=== PATIENT | female | born 1965 | race Caucasian/White ===

== ENCOUNTER → 2017-09-13 16:06 | Outpatient (CLI) | payer OTHER, SELFPAY ==
[2017-09-13 18:39] LABS: BUN Creatinine Ratio 22.2 (6-22); Blood Urea Nitrogen 20 mg/dL (7-17); Calcium 9.9 mg/dL (8.4-10.2); Carbon Dioxide 33 mmol/L (22-32); Chloride 95 mmol/L (98-107); Estimated Glomerular Filt Rate > 60.0 mL/min (>60); Glucose 96 mg/dL (70-100); HEMOLYSIS < 15 (0-50); Potassium 4.7 mmol/L (3.4-5.1); Sodium 141 mmol/L (137-145)
[2017-09-13 19:09] LABS: Thyroid Stimulating Hormone 0.03 uIU/mL (0.47-4.68)
== END ==
PROVIDERS: PCP Internal Medicine; Visit Provider Internal Medicine
DX: L70.9 Acne, unspecified (principal); E03.9 Hypothyroidism, unspecified
CPT/HCPCS: 36415; 80048; 84443

== ENCOUNTER → 2018-04-28 11:02 | Outpatient (CLI) | payer OTHER, SELFPAY ==
[2018-04-28 12:23] LABS: Free T3, Triiodothyronine Free 4.25 pg/mL (2.77-5.27)
[2018-04-28 12:37] LABS: Thyroid Stimulating Hormone 0.54 uIU/mL (0.47-4.68)
== END ==
PROVIDERS: PCP Internal Medicine; Visit Provider Internal Medicine
DX: E03.9 Hypothyroidism, unspecified (principal)
CPT/HCPCS: 36415; 84439; 84443; 84481

== ENCOUNTER → 2018-07-03 14:16 | Outpatient (CLI) | payer OTHER, SELFPAY | PROVIDERS: PCP Family Medicine; Visit Provider Registered Nurse | DX: R19.7 Diarrhea, unspecified (principal) | CPT/HCPCS: 87045; 87899 ==

== ENCOUNTER → 2018-07-03 14:26 | Outpatient (CLI) | payer OTHER, SELFPAY | PROVIDERS: PCP Family Medicine; Visit Provider Registered Nurse ==

== ENCOUNTER 2018-11-29 12:04 | Day surgery (SDC) | payer OTHER, SELFPAY ==
--- NOTE | 2018-11-29 | PATH_ITS ---
[facility] Accession Number: [id number] . 01 Material submitted: . cecum - CECAL POLYP AT 90 CM . 02 Diagnosis: Cecum, Polyp at 90 cm, Biopsy: Tubular adenoma. MRV/11/30/2018 . 02 Electronically signed: . Katrin Magana MD, Pathologist NPI- [id number] . 01 Gross description: . CECAL POLYP AT 90 CM: Received in formalin is 1 fragment(s) of molina, soft tissue measuring 0.4 x 0.3 x 0.3 cm which is entirely submitted and submitted entirely in 1 cassette(s) /DMC /DMC . 02 Pathologist provided ICD-10: D12.0 . 02 CPT . 311757 Performed at: 01 [facility] [address] [id number] MD Luke Suarez MD Phone: [phone] Performed at: 02 [facility] [address] [place], [place] [id number] MD Katrin Magana MD Phone: [phone]
[2018-11-29] MEDS: SODIUM CHLORIDE 0.9% 1,000 ML 200 ML IV (12:30)
[2018-11-29 12:32] VITALS: BP 145/96; PULSE 79; RESP 12; TEMP 36.6; O2SAT 99; BMI 26.0
--- NOTE | 2018-11-29 12:43 | P.HP_ITS ---
History of Present Illness Date Patient Seen: 11/29/18 Time Patient Seen: 12:40 Chief complaint: [id number] Narrative: Patient presents for colorectal screening. They had a prior colonoscopy 5 years ago which was reportedly normal Hergrandmaother had colon cancer at age 65. On further history denies any recent gastrointestinal symptoms. No nausea, vomiting, abdominal pain, loss of appetite, unexplained weight loss, change in bowel habits, melena, hematochezia, or bright red blood per rectum. Patient History Medical History Anemia (Chronic ~1989) Colon polyps (Chronic) Depression (Chronic ~1989) Eczema (Chronic ~2010) Hay fever (Chronic) Hemorrhoid (Chronic ~2007) Hypothyroidism (Chronic ~1999) Migraines (Chronic ~1989) Neck pain (Chronic ~2011) Rosacea (Chronic ~1989) Shoulder pain (Chronic ~2005) Supraventricular tachycardia (Chronic ~2007) Acne (Resolved) Chicken pox (Resolved ~1993) Surgical History Anesthesia (Resolved) Status post arthroscopy Status post breast biopsy Status post tubal ligation Family History (Updated 10/29/13 @ 00:00 by ALENA Mauricio) Father High cholesterol Melanoma Prostate cancer CVA (cerebral vascular accident) Grandfather Liver cancer Grandmother Parkinson's disease Mother Age: 77 Hypertension High cholesterol Osteoporosis Pulmonary embolism Social History (Updated 08/01/17 @ 21:10 by Shelia Roa) household members: spouse pets and animals: Yes education level: other 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 seatbelt use: always helmet use: Yes water heater temp set < 120 deg: No working smoke detector in home: Yes fire extinguisher in home: Yes carbon monox detector in home: Yes Smoking Status: Never smoker alcohol intake: current during the past year weight has: remained stable well-balanced diet: about half the time daily servings fruits/ve-4 caffeine: Yes (2+ caffeine drinks per day) eating out: 4 or more times/week Type(s) of exercise: walking frequency: 1-2 times per week duration: 30-45 minutes/day Family & Social History Family History Father High cholesterol Melanoma Prostate cancer CVA (cerebral vascular accident) Grandfather Liver cancer Grandmother Parkinson's disease Mother Age: 77 Hypertension High cholesterol Osteoporosis Pulmonary embolism Social History: household members spouse Tobacco & Substance use: Smoking Status Never smoker alcohol intake current alcohol intake frequency 0-2 drinks per day Meds Home Medications Medication Instructions Recorded Confirmed Type hydrocortisone acetate [Anusol-HC] 25 mg R BID #1 packet 06/27/16 07/03/18 Rx levothyroxine 88 mcg capsule 88 mcg PO DAILY #90 cap 05/15/18 07/03/18 Rx liothyronine 5 mcg tablet 10 mcg PO QDAY #180 tab 05/15/18 07/03/18 Rx spironolactone 100 mg tablet 50 mg PO DAILY #30 tab 05/15/18 07/03/18 Rx hydrocortisone 2.5 % topical cream 1 applictn TOP BID PRN #20 gram 07/03/18 Rx Allergies Allergy/AdvReac Type Severity Reaction Status Date / Time No Known Drug Allergies Allergy Unknown Unverified 07/03/18 13:56 [NO KNOWN DRUG ALLERGIES] OYSTER Allergy Mild Uncoded 07/03/18 13:56 Review of Systems Review of Systems All systems reviewed & are unremarkable except as noted in HPI and below Exam Vital Signs (past 8 hours): - 11/29/18 12:32 Temperature 97.9 F Pulse Rate 79 Respiratory Rate 12 Blood Pressure 145/96 H Pulse Oximetry 99 Oxygen Delivery Method Room Air Narrative Exam Narrative: General-adult female no acute distress, well nourished HEENT-moist mucous membranes, no scleral icterus Neck-supple with full range of motion, no lymphadenopathy Chest- no labored respirations, clear to auscultation bilaterally Cardiac-regular rate and rhythm Abdomen-soft, nontender, non distended Extremities-no edema, warm well perfused Neurological-alert and oriented x 3. No focal deficits Skin-normal temperature and turgor, no rashes or ulcers Assessment & Plan (1) Screening for colon cancer: Current visit: Yes Status: Acute Assessment & Plan narrative: Patient is requiring colorectal screening. Colonoscopy is recommended. Technical details were discussed. Risks, benefits, alternatives explained. Risks including but not limited to sedation, aspiration, bleeding, pain, missed lesion, incomplete examination, need for further radiographic studies, colonic perforation, need for major abdominal surgery, and all attendant risks major surgery were discussed at length. All questions were answered to their satisfaction, and they voiced understanding.
[2018-11-29] MEDS: MIDAZOLAM 5 MG/5 ML VIAL IV (13:29)
[2018-11-29] MEDS: fentaNYL 250 MCG/5 ML INJ IV (13:32)
[2018-11-29 13:46] VITALS: BP 146/85; PULSE 66; RESP 15; TEMP 36.6; O2SAT 99
--- NOTE | 2018-11-29 13:49 | PM.OP.ENDO ---
Operative Date/Time/Diagnoses Date of procedure: 11/29/18 Time of procedure: 13:49 Pre-op diagnosis: screening colonoscopy. Family history of colon cancer Post-op diagnosis: same Procedure & Clinicians Study performed: colonoscopy Same procedure as scheduled: Yes Indications: A 53-year-old female with strong family history of colon cancer presents for routine screening Surgeon: Nikolai Christine Procedure Notes SCOAP/Timeout: performed Procedure in detail: Digital rectal exam was performed. Scope was carefully inserted into the rectum and advanced through the colon. The ileocecal valve was reached. A less than 1 cm benign-appearing polyp within the cecum at approximately 90 cm was identified and biopsied. The site was found to be hemostatic. The scope was carefully withdrawn. The remainder of the colon was normal in its appearance. The scope was retroflexed within the rectum demonstrated grade 1 internal hemorrhoid. Scope withdrawal time: 10 Sedation minutes: 30 Findings: polyp Specimen(s): other (polyp cecum at 90 cm) Complications: none Impression: normal Recommendations: Colonscopy in 5 years Disposition: same day surgery
[2018-11-29 13:50] VITALS: BP 135/81; PULSE 63; RESP 15; O2SAT 99
--- NOTE | 2018-11-29 13:52 | P.OP.ENDO_ITS ---
Operative Date/Time/Diagnoses Date of procedure: 11/29/18 Time of procedure: 13:49 Pre-op diagnosis: screening colonoscopy. Family history of colon cancer Post-op diagnosis: same Procedure & Clinicians Study performed: colonoscopy Same procedure as scheduled: Yes Indications: A 53-year-old female with strong family history of colon cancer pr esents for routine screening Surgeon: Nikolai Christine Procedure Notes SCOAP/Timeout: performed Procedure in detail: Digital rectal exam was performed. Scope was carefully inserted into the rectum and advanced through the colon. The ileocecal valve was reached. A less than 1 cm benign-appearing polyp within the cecum at approximately 90 cm was identified and biopsied. The site was found to be hemostatic. The scope was carefully withdrawn. The remainder of the colon was normal in its appearance. The scope was retroflexed within the rectum demonstrated grade 1 internal hemorrhoid. Scope withdrawal time: 10 Sedation minutes: 30 Findings: polyp Specimen(s): other (polyp cecum at 90 cm) Complications: none Impression: normal Recommendations: Colonscopy in 5 years Disposition: same day surgery
[2018-11-29 14:04] VITALS: BP 132/78; PULSE 65; RESP 14; TEMP 36.9; O2SAT 100
[2018-11-29 14:19] VITALS: BP 129/81; PULSE 70; RESP 12; TEMP 36.6; O2SAT 100
== END 2018-11-29 12:43 | disposition home or self-care (01) ==
PROVIDERS: PCP Family Medicine; Visit Provider Surgery
PROC: 0DJD8ZZ Inspection of Lower Intestinal Tract, Via Natural or Artificial Opening Endoscopic (ICD-10-PCS; CPT 45378; principal; 2018-11-29 13:00)
DX: Z12.11 Encounter for screening for malignant neoplasm of colon (principal); D12.0 Benign neoplasm of cecum; K64.0 First degree hemorrhoids; F32.9 Major depressive disorder, single episode, unspecified; E03.9 Hypothyroidism, unspecified; Z80.0 Family history of malignant neoplasm of digestive organs
CPT/HCPCS: 45380; 99152; 99153; J2250; J3010

== ENCOUNTER → 2019-02-12 17:22 | Outpatient (CLI) | payer OTHER, SELFPAY ==
--- NOTE | 2019-02-12 | DI.MG.S_ITS ---
BILATERAL DIGITAL SCREENING MAMMOGRAM 3D/2D WITH CAD: 02/12/2019 CLINICAL: Routine screening. Comparison is made to exams dated: 03/29/2017 mammogram, 07/14/2015 mammogram, and 03/14/2014 mammogram - [facility]. The tissue of both breasts is heterogeneously dense. This may lower the sensitivity of mammography. Current study was also evaluated with a Computer Aided Detection (CAD) system. There is a biopsy clip in the left breast. No significant masses, calcifications, or other findings are seen in either breast. There has been no significant interval change. IMPRESSION: NEGATIVE There is no mammographic evidence of malignancy. A 1 year screening mammogram is recommended. This exam was interpreted at Station ID: [id number]. NOTE: For mammograms, a report in lay terms will be sent to the patient. Approximately 15% of breast malignancies will not be visualized mammographically. In the management of a palpable breast mass, a negative mammogram must not discourage biopsy of a clinically suspicious lesion. Electronically Signed By: Alex carrasco/zayra:02/13/2019 08:32:51 letter sent: Normal Exam ACR BI-RADS Category 1: Negative 3341F
== END ==
PROVIDERS: PCP Family Medicine; Visit Provider Family Medicine
DX: Z12.31 Encounter for screening mammogram for malignant neoplasm of breast (principal)
CPT/HCPCS: 77063; 77067

== ENCOUNTER → 2019-06-08 11:00 | Outpatient (CLI) | payer OTHER, SELFPAY ==
[2019-06-08 13:45] LABS: Thyroid Stimulating Hormone 1.15 uIU/mL (0.47-4.68)
== END ==
PROVIDERS: PCP Family Medicine; Referring Provider Family Medicine; Visit Provider Family Medicine
DX: E03.9 Hypothyroidism, unspecified (principal)
CPT/HCPCS: 36415; 84443

== ENCOUNTER → 2020-02-12 17:41 | Outpatient (CLI) | payer OTHER, SELFPAY ==
[2020-02-12 18:11] LABS: BUN Creatinine Ratio 27.2 (6-22); Blood Urea Nitrogen 22 mg/dL (7-17); Calcium 9.3 mg/dL (8.4-10.2); Carbon Dioxide 33 mmol/L (22-32); Chloride 102 mmol/L (98-107); Estimated Glomerular Filt Rate > 60.0 mL/min (>60); Glucose 85 mg/dL (70-100); HEMOLYSIS < 15 (0-50); Potassium 4.4 mmol/L (3.4-5.1); Sodium 140 mmol/L (137-145)
== END ==
PROVIDERS: PCP Family Medicine; Referring Provider Family Medicine; Visit Provider Family Medicine
DX: Z79.899 Other long term (current) drug therapy (principal)
CPT/HCPCS: 36415; 80048

== ENCOUNTER → 2021-02-06 08:33 | Outpatient (CLI) | payer OTHER, SELFPAY ==
[2021-02-06 09:20] LABS: Add Manual Diff / Slide Review NO; Basophils Absolute Auto 0 /uL (0-100); Basophils Percent Auto 0.4 % (0-2); Eosinophils Absolute Auto 100 /uL (0-450); Eosinophils Percent Auto 1.9 % (2-4); Hematocrit 41.8 % (36-46); Hemoglobin 13.7 g/dL (12.0-16.0); Lymphocytes Absolute Auto 1900 /uL (1100-4500); Lymphocytes Percent Auto 28.4 % (25-40); Mean Corpuscular HGB Conc 32.8 % (30-36); Mean Corpuscular Volume 88.3 fL (80-100); Monocytes Absolute Auto 400 /uL (0-900); Monocytes Percent Auto 5.6 % (3-14); Neutrophils Absolute Auto 4300 /uL (1500-7000); Neutrophils Percent Auto 63.7 % (50-75); Platelet Count 264 X10^3/uL (150-400); Red Blood Cell Count 4.73 X10^6/uL (4.0-5.2); Red Cell Distribution Width 14.1 % (11.6-14.8); White Blood Cell Count 6.7 X10^3/uL (4.5-11.0)
[2021-02-06 09:32] LABS: Alanine Aminotransferase 15 IU/L (<35); Albumin 4.5 g/dL (3.5-5.0); Alkaline Phosphatase 70 U/L (38-126); Aspartate Aminotransferase 23 IU/L (14-36); BUN Creatinine Ratio 16.3 (6-22); Bilirubin Total 1.6 mg/dL (0.2-1.3); Blood Urea Nitrogen 15 mg/dL (7-17); Calcium 9.3 mg/dL (8.4-10.2); Carbon Dioxide 31 mmol/L (22-32); Chloride 98 mmol/L (98-107); Cholesterol 216 mg/dL (140-199); Estimated Glomerular Filt Rate > 60.0 mL/min (>60); Globulin 2.3 g/dL (1.7-4.1); Glucose 90 mg/dL (70-100); HDL Cholesterol 67 mg/dL (40-60); HEMOLYSIS < 15 (0-50); LDL Cholesterol Calculated 130 mg/dL (<100); Potassium 4.7 mmol/L (3.4-5.1); Sodium 134 mmol/L (137-145); Total Protein 6.8 g/dL (6.3-8.2); Triglycerides 95 mg/dL (35-150)
[2021-02-06 09:48] LABS: Free T3, Triiodothyronine Free 3.58 pg/mL (2.77-5.27)
[2021-02-06 10:02] LABS: Thyroid Stimulating Hormone 1.77 uIU/mL (0.47-4.68)
== END ==
PROVIDERS: PCP Family Medicine; Referring Provider Family Medicine; Visit Provider Family Medicine
DX: E03.9 Hypothyroidism, unspecified (principal)
CPT/HCPCS: 36415; 80053; 80061; 84439; 84443; 84481; 85025

== ENCOUNTER → 2021-02-24 17:02 | Outpatient (CLI) | payer OTHER, SELFPAY ==
--- NOTE | 2021-02-24 | DI.MG.S_ITS ---
BILATERAL DIGITAL SCREENING MAMMOGRAM 3D/2D WITH CAD: 02/24/2021 CLINICAL: Routine screening. Comparison is made to exams dated: 03/29/2017 mammogram, 07/14/2015 mammogram, 03/29/2017 ultrasound, and 03/14/2014 mammogram - [facility]. The tissue of both breasts is heterogeneously dense. This may lower the sensitivity of mammography. Current study was also evaluated with a Computer Aided Detection (CAD) system. There is a biopsy clip in the left breast. No significant masses, calcifications, or other findings are seen in either breast. There has been no significant interval change. IMPRESSION: NEGATIVE There is no mammographic evidence of malignancy. A 1 year screening mammogram is recommended. This exam was interpreted at Station ID: [id number]. NOTE: For mammograms, a report in lay terms will be sent to the patient. Approximately 15% of breast malignancies will not be visualized mammographically. In the management of a palpable breast mass, a negative mammogram must not discourage biopsy of a clinically suspicious lesion. Electronically Signed By: Alex carrasco/zayra:02/25/2021 07:51:27 letter sent: Normal Exam ACR BI-RADS Category 1: Negative 3341F
== END ==
PROVIDERS: PCP Family Medicine; Referring Provider Family Medicine; Visit Provider Family Medicine
DX: Z12.31 Encounter for screening mammogram for malignant neoplasm of breast (principal)
CPT/HCPCS: 77063; 77067

== ENCOUNTER → 2021-03-22 07:06 | Outpatient (CLI) | payer OTHER, SELFPAY ==
--- NOTE | 2021-03-22 07:10 | DI.US.S_ITS ---
PROCEDURE: US PELVIC COMPLETE INDICATIONS: PMB TECHNIQUE: Real-time scanning was performed of the pelvic organs, with image documentation. Additional endovaginal scanning was necessary due to incomplete visualization of the adnexal and endometrial structures by transabdominal scanning. COMPARISON: [facility], , PELVIC COMPLETE, 06/12/2014, 15:02. FINDINGS: Uterus: Uterus is retroverted and normal in size at 7 x 5.1 x 6.4 cm. The myometrium is heterogeneous. The endometrium measures 3.8 mm combined thickness. Multiple ovoid lesions are seen, most consistent with fibroids; largest detailed below: Fibroid 1: Right fundal; intramural; 4 x 4.4 x 4.9 cm. Fibroid 2: Right anterior; intramural; 1.8 x 1.3 x 1.6 cm Fibroid 3: Midline anterior; intramural; 1.2 x 0.8 x 1.1 cm Ovaries: The right ovary measures 2 x 0.8 x 0.8 cm. 7 mm hypoechoic lesion in the right ovary, most consistent with a cyst/follicle. The left ovary is not visualized. Other: No pathologic free abdominal or pelvic fluid. IMPRESSION: 1. Myomatous change of the uterus. 2. Simple appearing right ovarian cyst. We strive to produce accurate, complete, and clear reports of imaging services. To assist us in improving patient care, this report was composed using standard report templates and voice recognition software. Therefore, it may contain abnormal punctuation, insertions and/or omissions. Occasional wrong-word or sound-alike substitutions may occur. Though we review the report and make efforts to correct it, we do recommend that the report be read carefully in proper context to recognize any text inaccuracies. Dictated by: Petar Whitney M.D. on 03/22/2021 at 8:09 Approved by: Petar Whitney M.D. on 03/22/2021 at 8:24
== END ==
PROVIDERS: PCP Family Medicine; Referring Provider Family Medicine; Visit Provider Family Medicine
DX: N95.0 Postmenopausal bleeding (principal); D25.1 Intramural leiomyoma of uterus; N60.01 Solitary cyst of right breast
CPT/HCPCS: 76830; 76856

== ENCOUNTER → 2022-03-26 11:15 | Outpatient (CLI) | payer OTHER, SELFPAY ==
--- NOTE | 2022-03-26 11:18 | DI.MG.S_ITS ---
BILATERAL DIGITAL SCREENING MAMMOGRAM 3D/2D WITH CAD: 03/26/2022 CLINICAL: Routine screening. Comparison is made to exams dated: 02/24/2021 mammogram, 02/12/2019 mammogram, and 03/29/2017 mammogram - [facility]. Both breasts are heterogeneously dense, which may obscure small masses (category c / 51-75% glandular tissue). Current study was also evaluated with a Computer Aided Detection (CAD) system. There is a biopsy clip in the left breast. No significant masses, calcifications, or other findings are seen in either breast. There has been no significant interval change. IMPRESSION: NEGATIVE There is no mammographic evidence of malignancy. A 1 year screening mammogram is recommended. Based on the Tyrer Cuzick model (a risk assessment model) the patient's lifetime risk is 12.7% and her 10 year risk is 4.2%. According to the ACR, ACS, and NCCN guidelines, an annual breast MRI exam along with mammogram is recommended if the patient's lifetime risk is 20% or greater. This exam was interpreted at Station ID: [id number]. NOTE: For mammograms, a report in lay terms will be sent to the patient. Approximately 15% of breast malignancies will not be visualized mammographically. In the management of a palpable breast mass, a negative mammogram must not discourage biopsy of a clinically suspicious lesion. Electronically Signed By: Vinay greene/zayra:03/28/2022 08:11:58 letter sent: Normal Exam ACR BI-RADS Category 1: Negative 3341F
== END ==
PROVIDERS: PCP Family Medicine; Referring Provider Family Medicine; Visit Provider Family Medicine
DX: Z12.31 Encounter for screening mammogram for malignant neoplasm of breast (principal)
CPT/HCPCS: 77063; 77067

== ENCOUNTER → 2022-05-14 08:46 | Outpatient (CLI) | payer OTHER, SELFPAY ==
[2022-05-14 09:19] LABS: Add Manual Diff / Slide Review NO; Basophils Absolute Auto 0 /uL (0-100); Basophils Percent Auto 0.5 % (0-2); Eosinophils Absolute Auto 200 /uL (0-450); Eosinophils Percent Auto 3.7 % (2-4); Hematocrit 42.1 % (36-46); Hemoglobin 14.3 g/dL (12.0-16.0); Lymphocytes Absolute Auto 2100 /uL (1100-4500); Lymphocytes Percent Auto 38.3 % (25-40); Mean Corpuscular HGB Conc 33.9 % (30-36); Mean Corpuscular Hemoglobin 29.7 PG (26-34); Mean Corpuscular Volume 87.5 fL (80-100); Monocytes Absolute Auto 300 /uL (0-900); Monocytes Percent Auto 5.7 % (3-14); Neutrophils Absolute Auto 2800 /uL (1500-7000); Neutrophils Percent Auto 51.8 % (50-75); Platelet Count 227 X10^3/uL (150-400); Red Blood Cell Count 4.82 X10^6/uL (4.0-5.2); Red Cell Distribution Width 13.7 % (11.6-14.8); White Blood Cell Count 5.5 X10^3/uL (4.5-11.0)
[2022-05-14 10:01] LABS: Alanine Aminotransferase 25 IU/L (<35); Albumin 4.5 g/dL (3.5-5.0); Albumin Globulin Ratio 1.7 (1.0-2.8); Alkaline Phosphatase 77 U/L (38-126); Aspartate Aminotransferase 29 IU/L (14-36); BUN Creatinine Ratio 20.4 (6-22); Bilirubin Total 1.3 mg/dL (0.2-1.3); Blood Urea Nitrogen 22 mg/dL (7-17); Calcium 9.2 mg/dL (8.4-10.2); Carbon Dioxide 34 mmol/L (22-32); Chloride 97 mmol/L (98-107); Cholesterol 278 mg/dL (140-199); Estimated Glomerular Filt Rate > 60 mL/min (>60); Globulin 2.7 g/dL (1.7-4.1); Glucose 91 mg/dL (70-100); HDL Cholesterol 76 mg/dL (40-60); HEMOLYSIS < 15 (0-50); LDL Cholesterol Calculated 182 mg/dL (<100); Sodium 136 mmol/L (137-145); Total Protein 7.2 g/dL (6.3-8.2); Triglycerides 100 mg/dL (35-150)
[2022-05-14 10:29] LABS: TSH w/ Reflex to FT4 1.37 uIU/mL (0.47-4.68)
== END ==
PROVIDERS: PCP Family Medicine; Referring Provider Family Medicine; Visit Provider Family Medicine
DX: E03.9 Hypothyroidism, unspecified (principal); E78.5 Hyperlipidemia, unspecified; Z86.59 Personal history of other mental and behavioral disorders
CPT/HCPCS: 36415; 80053; 80061; 84443; 85025

== ENCOUNTER → 2022-07-30 08:31 | Outpatient (CLI) | payer OTHER, SELFPAY ==
[2022-07-30 09:25] LABS: BUN Creatinine Ratio 17.8 (6-22); Blood Urea Nitrogen 18 mg/dL (7-17); Carbon Dioxide 31 mmol/L (22-32); Chloride 97 mmol/L (98-107); Estimated Glomerular Filt Rate > 60 mL/min (>60); Glucose 86 mg/dL (70-100); HEMOLYSIS < 15 (0-50); Potassium 4.6 mmol/L (3.4-5.1); Sodium 135 mmol/L (137-145)
== END ==
PROVIDERS: PCP Family Medicine; Referring Provider Family Medicine; Visit Provider Family Medicine
DX: E86.0 Dehydration (principal)
CPT/HCPCS: 36415; 80048

== ENCOUNTER → 2023-03-30 15:30 | Outpatient (CLI) | payer OTHER, SELFPAY ==
--- NOTE | 2023-03-30 15:32 | DI.MG.S_ITS ---
BILATERAL DIGITAL SCREENING MAMMOGRAM 3D/2D WITH CAD: 03/30/2023 CLINICAL: Routine screening. Comparison is made to exams dated: 03/26/2022 mammogram, 02/24/2021 mammogram, and 02/12/2019 mammogram - [facility]. Both breasts are heterogeneously dense, which may obscure small masses (category c / 51-75% glandular tissue). Current study was also evaluated with a Computer Aided Detection (CAD) system. There is a biopsy clip in the left breast. No significant masses, calcifications, or other findings are seen in either breast. There has been no significant interval change. IMPRESSION: NEGATIVE There is no mammographic evidence of malignancy. A 1 year screening mammogram is recommended. Based on the Tyrer Cuzick model (a risk assessment model) the patient's lifetime risk is 12.6% and her 10 year risk is 4.4%. According to the ACR, ACS, and NCCN guidelines, an annual breast MRI exam along with mammogram is recommended if the patient's lifetime risk is 20% or greater. This exam was interpreted at Station ID: [id number]. NOTE: For mammograms, a report in lay terms will be sent to the patient. Approximately 15% of breast malignancies will not be visualized mammographically. In the management of a palpable breast mass, a negative mammogram must not discourage biopsy of a clinically suspicious lesion. Electronically Signed By: Jerrod muniz/zayra:03/31/2023 11:05:17 letter sent: Normal Exam ACR BI-RADS Category 1: Negative 3341F
== END ==
PROVIDERS: PCP Family Medicine; Referring Provider Family Medicine; Visit Provider Family Medicine
DX: Z12.31 Encounter for screening mammogram for malignant neoplasm of breast (principal)
CPT/HCPCS: 77063; 77067

== ENCOUNTER → 2023-08-16 08:38 | Outpatient (CLI) | payer BC, SELFPAY ==
[2023-08-16 09:37] LABS: Add Manual Diff / Slide Review NO; Basophils Absolute Auto 0 /uL (0-100); Basophils Percent Auto 0.9 % (0-2); Eosinophils Absolute Auto 200 /uL (0-450); Eosinophils Percent Auto 4.8 % (2-4); Hematocrit 38.8 % (36-46); Lymphocytes Absolute Auto 1600 /uL (1100-4500); Lymphocytes Percent Auto 33.6 % (25-40); Mean Corpuscular HGB Conc 33.5 % (30-36); Mean Corpuscular Hemoglobin 29.1 PG (26-34); Mean Corpuscular Volume 86.8 fL (80-100); Monocytes Absolute Auto 300 /uL (0-900); Monocytes Percent Auto 6.5 % (3-14); Neutrophils Absolute Auto 2600 /uL (1500-7000); Neutrophils Percent Auto 54.2 % (50-75); Platelet Count 247 X10^3/uL (150-400); Red Blood Cell Count 4.47 X10^6/uL (4.0-5.2); Red Cell Distribution Width 13.9 % (11.6-14.8); White Blood Cell Count 4.9 X10^3/uL (4.5-11.0)
[2023-08-16 10:06] LABS: BUN Creatinine Ratio 17.7 (6-22); Blood Urea Nitrogen 17 mg/dL (7-17); C-Reactive Protein Quant < 0.5 mg/dL (<1.0); Calcium 9.4 mg/dL (8.4-10.2); Carbon Dioxide 31 mmol/L (22-32); Chloride 104 mmol/L (98-107); Cholesterol 231 mg/dL (140-199); Estimated Glomerular Filt Rate > 60 mL/min (>60); Glucose 87 mg/dL (70-100); HDL Cholesterol 78 mg/dL (40-60); HEMOLYSIS < 15 (0-50); LDL Cholesterol Calculated 136 mg/dL (<100); Potassium 4.8 mmol/L (3.4-5.1); Sodium 139 mmol/L (137-145); Triglycerides 87 mg/dL (35-150)
[2023-08-16 10:08] LABS: Rheumatoid Factor < 8.6 IU/mL (<12.0)
[2023-08-16 10:12] LABS: Erythrocyte Sedimentation Rate 4 MM/HR (0-20)
[2023-08-16 10:33] LABS: TSH w/ Reflex to FT4 1.74 uIU/mL (0.47-4.68)
== END ==
LOC: LAB 08:40
PROVIDERS: PCP Family Medicine; Referring Provider Family Medicine; Visit Provider Family Medicine
DX: M25.50 Pain in unspecified joint (principal); E78.1 Pure hyperglyceridemia; E78.5 Hyperlipidemia, unspecified; E03.9 Hypothyroidism, unspecified
CPT/HCPCS: 36415; 80048; 80061; 84443; 85025; 85651; 86140; 86200; 86430

== ENCOUNTER → 2023-09-28 16:31 | Outpatient (CLI) | payer BC, SELFPAY ==
--- NOTE | 2023-09-28 16:33 | DI.RAD.S_ITS ---
PROCEDURE: XR HAND LT MIN 3V INDICATIONS: swelling TECHNIQUE: Three views of the hand acquired. COMPARISON: None. FINDINGS: Bones: No acute fractures or dislocations. Carpal bones are normally aligned. No suspicious bony lesions. Degenerative changes of the 1st carpometacarpal joint. Minimal scattered degenerative changes in the interphalangeal joints of the fingers, most notably at the 1st interphalangeal joint and 2nd distal interphalangeal joint. No definite osseous erosions. Soft tissues: No suspicious soft tissue calcifications. No focal nodular soft tissue swelling is seen. IMPRESSION: No acute osseous abnormality. Mild arthritic changes most notably at the 1st carpometacarpal joint. Approved by: Donavan Melendez M.D. on 09/28/2023 at 20:39
--- NOTE | 2023-09-28 16:33 | DI.RAD.S_ITS ---
PROCEDURE: XR HAND RT MIN 3V INDICATIONS: swelling TECHNIQUE: Three views of the hand acquired. COMPARISON: None. FINDINGS: Bones: No acute fractures or dislocations. Carpal bones are normally aligned. No suspicious bony lesions. Minimal arthritic changes are seen at the 1st carpometacarpal joint and multiple interphalangeal joints of the fingers, most notably the 2nd distal interphalangeal joint. No definite osseous erosion is seen. Soft tissues: No suspicious soft tissue calcifications. No focal nodular soft tissue swelling identified. IMPRESSION: No acute osseous abnormality. Minimal arthritic changes. Approved by: Donavan Melendez M.D. on 09/28/2023 at 20:37
== END ==
LOC: RAD 16:33
PROVIDERS: PCP Family Medicine; Referring Provider Family Medicine; Visit Provider Family Medicine
DX: M25.449 Effusion, unspecified hand (principal)
CPT/HCPCS: 73130

== ENCOUNTER 2024-02-20 09:46 | Day surgery (SDC) | payer BC, SELFPAY ==
--- NOTE | 2024-02-20 | PATH_ITS ---
[facility] Accession Number: [id number] No. of containers..01 Tissue . 01 Material submitted: . colon - SIGMOID POLYP . 01 Diagnosis: SIGMOID COLON POLYP, BIOPSY: Hyperplastic polyp. MRV 02/21/2024 1522 Local . 01 Electronically signed: . Gilmer Lopez MD, PhD, Pathologist NPI- [id number] . 01 Gross description: . SIGMOID POLYP: Received in formalin are 2 fragment(s) of molina, soft tissue measuring 0.2 x 0.2 x 0.2 cm to 0.4 x 0.3 x 0.2 cm submitted entirely in 1 cassette(s) /GATITO 02/21/2024 0018 Local . 01 Pathologist provided ICD-10: K63.5 . 01 CPT . 979217 Specimen Comment: A courtesy copy of this report has been sent to [phone] Performed at: [address] [id number] MD Luke Suarez MD Phone: [phone]
[2024-02-20 10:30] VITALS: BP 123/85; PULSE 64; RESP 12; TEMP 36.7; O2SAT 100
--- NOTE | 2024-02-20 11:17 | PM.HP.1 ---
History of Present Illness History of Present Illness Date Patient Seen: 02/20/24 Time Patient Seen: 11:17 Chief complaint: SDC Narrative: 59-year-old woman personal history of colonic polyps here for screening colonoscopy. Grandma has a history of colon cancer. Last colonoscopy 5 years ago. No abdominal concerns today. [facility] Medical History Hay fever Depression (~1989) Migraines (~1989) Neck pain (~2011) Shoulder pain (~2005) Rosacea (~1989) Eczema (~2010) Acne Chicken pox (~1993) Anemia (~1989) Hypothyroidism (~1999) Supraventricular tachycardia (~2007) Hemorrhoid (~2007) Colon polyps Surgical History Anesthesia Status post breast biopsy Status post tubal ligation Status post arthroscopy Family History Father High cholesterol Melanoma Prostate cancer CVA (cerebral vascular accident) Grandfather Liver cancer Grandmother Parkinson's disease Mother Age: 82 Hypertension High cholesterol Osteoporosis Pulmonary embolism Social History household members: spouse pets and animals: Yes education level: other occupational status: employed [employer]: None seatbelt use: always helmet use: Yes water heater temp set < 120 deg: No working smoke detector in home: Yes fire extinguisher in home: Yes carbon monox detector in home: Yes Smoking Status: Never smoker alcohol intake: current during the past year weight has: remained stable well-balanced diet: about half the time daily servings fruits/ve-4 caffeine: Yes (2+ caffeine drinks per day) eating out: 4 or more times/week Type(s) of exercise: walking frequency: 1-2 times per week duration: 30-45 minutes/day Meds Home Medications and Allergies Home Medications Medication Instructions Recorded Confirmed Type fluticasone furoate 27.5 intranasal 08/01/23 10/04/23 History mcg/actuation nasal spray,suspension (Flonase Sensimist) hydrocortisone 2.5 % topical 1 applic topical BID PRN itching 10/04/23 10/04/23 Rx ointment #28.35 grams levothyroxine 88 mcg tablet 88 mcg PO .COMPLEX #90 tabs 10/04/23 02/20/24 Rx liothyronine 5 mcg tablet 10 mcg (2 x 5 mcg) PO .COMPLEX 10/04/23 02/20/24 Rx #180 tabs spironolactone 50 mg tablet 100 mg (2 x 50 mg) PO QAM #180 tabs 10/04/23 02/20/24 Rx sodium,potassium,mag sulfates 17.5 See Rx Instructions PO .COMPLEX 01/12/24 Rx gram-3.13 gram-1.6 gram oral soln #354 mL (Suprep Bowel Prep Kit) Allergies Allergy/AdvReac Type Severity Reaction Status Date / Time No Known Drug Allergies Allergy Unknown Verified 10/04/23 09:26 [NO KNOWN DRUG ALLERGIES] OYSTER Allergy Mild Uncoded 10/04/23 09:26 Exam Vital Signs (past 8 hours): - 02/20/24 10:30 Temperature 98.0 F Pulse Rate 64 Respiratory Rate 12 Blood Pressure 123/85 Pulse Oximetry 100 Oxygen Delivery Method Room Air Oxygen Delivery Method Room Air Narrative Exam Narrative: General adult woman alert oriented no acute distress Chest nonlabored respiration Extremities warm well perfused Assessment & Plan Assessment and plan (1) Polyp of colon: Status: None Assessment & Plan narrative: The patient requires colorectal screening and colonoscopy is recommended. Technical details were discussed. Risks, benefits, alternatives explained. Risks including but not limited to myocardial infarction, aspiration, bleeding, pain, missed lesion, incomplete examination, need for further radiographic studies, intestinal injury, and need for major abdominal surgery were discussed. All questions were answered to their satisfaction, and they are in agreement with this plan. Time-Based Coding :: [TOTAL MINUTES] spent with patient and on the chart (including review of chart, obtaining history, exam, reviewing outside data, placing orders, documenting exam and treatment plan, and counseling patient) on [DATE].
[2024-02-20 12:00] VITALS: BP 144/95; PULSE 66; RESP 17; TEMP 36.4; O2SAT 98
[2024-02-20 12:05] VITALS: BP 122/61; PULSE 60; RESP 13; O2SAT 100
--- NOTE | 2024-02-20 12:05 | P.OP.COLON_ITS ---
Operative Date/Time/Diagnoses Date of procedure: 02/20/24 Time of procedure: 12:06 Pre-op diagnosis: Personal history of colonic polyps Second-degree family member with colon cancer Post-op diagnosis: other (Colonic polyp x1) Procedure & Clinicians Study performed: Colonoscopy and polypectomy Same procedure as scheduled: Yes Indications: Colorectal screening Personal history of colonic polyps Second-degree family member with colon cancer Surgeon: Nikolai Christine Procedure Notes Procedure in detail: The history and physical was performed/updated and the patient is ASA class is 2. The procedure was discussed in detail with the patient. Potential risks complications including infection, bleeding, missed diagnosis, perforation, need for surgery, and were explained. Their questions were answered and informed consent was obtained. Patient was brought to the procedure room and placed standard monitoring equipment. The patient's vital signs were monitored continuously throughout the entire procedure. Prior to starting time-out was performed. The patient was placed in the left lateral recumbent position. Procedural sedation was administered by anesthesia. Examination began with a thorough inspection of the perianal area there was no evidence of fissures, fistulae, external hemorrhoids or cutaneous malignancy. The colonoscopy scope was then placed into the anal canal and was advanced to the cecum, which was identified by the ileocecal valve, the appendiceal orifice and the confluence of the taenia. The scope was then slowly withdrawn examining colon thoroughly in all directions, irrigating it of any residual stool. The scope was retroflexed within the rectum The patient tolerated the procedure well. They will be discharged once criteria are met. The prep was of good/excellent quality. The withdrawl time was 10minutes. FINDINGS * Mild diverticulosis of distal colon * 3 mm polyp in sigmoid colon removed with biopsy forceps Specimen(s): other (Sigmoid polyp) Impression: Colonic polyp x1 Post-procedure Recommendations: High fiber diet Plan for aftercare: Follow up dependent on pathology findings likely 5 years Disposition: same day surgery
[2024-02-20 12:12] VITALS: BP 120/69; PULSE 69; RESP 13; TEMP 36.9; O2SAT 100
[2024-02-20 12:37] VITALS: BP 137/77; PULSE 64; RESP 14; TEMP 36.3
== END 2024-02-20 12:44 | disposition home or self-care (01) ==
PROVIDERS: PCP Family Medicine; Referring Provider Surgery; Visit Provider Surgery
PROC: 0DJD8ZZ Inspection of Lower Intestinal Tract, Via Natural or Artificial Opening Endoscopic (ICD-10-PCS; CPT 45378; principal; 2024-02-20 11:00)
DX: Z12.11 Encounter for screening for malignant neoplasm of colon (principal); Z86.0100 Personal history of colon polyps, unspecified; K57.30 Diverticulosis of large intestine without perforation or abscess without bleeding; K63.5 Polyp of colon
CPT/HCPCS: 45380; J2704

== ENCOUNTER → 2024-09-10 14:42 | Outpatient (CLI) | payer BC, SELFPAY ==
--- NOTE | 2024-09-10 14:43 | DI.MG.S_ITS ---
MM screening mammo BI: 09/10/2024. BI-RADS: 2 CLINICAL: 59-year old female for bilateral screening mammogram. Tyrer-Cuzick lifetime risk of 12.4%. No personal or first-degree family history of breast cancer. The patient had a prior left breast biopsy. PRIOR EXAMS 03/30/2023, 03/26/2022, 02/24/2021, 02/12/2019, 03/29/2017, 07/14/2015, 07/07/2015. MAMMOGRAPHY TECHNIQUE: 2D and 3D (tomosynthesis) digital mammographic views obtained, with additional images as needed for full coverage. Current study was also evaluated with a Computer Aided Detection (CAD) system. DENSITY C. The breasts are heterogeneously dense, which may obscure small masses. MAMMOGRAPHY FINDINGS Right: No suspicious mass, asymmetry, microcalcification, or other abnormality seen. No significant change from comparison. Left: Biopsy marker present on the left. There are no suspicious masses, calcifications, or other findings in the breast. No significant change from comparison. IMPRESSION: Right * No evidence of malignancy. Left * No evidence of malignancy with benign findings. RECOMMENDATIONS Bilateral * Annual screening mammography. OVERALL ASSESSMENT CATEGORY BI-RADS-2: Benign. [employer] recommends annual screening mammography beginning at age 40 for women with average risk of breast cancer. ELECTRONICALLY SIGNED: Tania Almanza M.D. on 09/11/2024 at 09:06:33 AM PT Interpreting Station ID: [id number]
== END ==
LOC: MAMMO 14:42
PROVIDERS: PCP Family Medicine; Referring Provider Family Medicine; Visit Provider Family Medicine
DX: Z12.31 Encounter for screening mammogram for malignant neoplasm of breast (principal); R92.333 Mammographic heterogeneous density, bilateral breasts
CPT/HCPCS: 77063; 77067

== ENCOUNTER → 2024-10-04 08:26 | Outpatient (CLI) | payer BC, SELFPAY ==
[2024-10-04 09:04] LABS: Add Manual Diff / Slide Review NO; Basophils Absolute Auto 0 /uL (0-100); Eosinophils Absolute Auto 200 /uL (0-450); Eosinophils Percent Auto 4.8 % (2-4); Hematocrit 34.6 % (36-46); Hemoglobin 11.6 g/dL (12.0-16.0); Lymphocytes Absolute Auto 1500 /uL (1100-4500); Lymphocytes Percent Auto 35.8 % (25-40); Mean Corpuscular HGB Conc 33.5 % (30-36); Mean Corpuscular Hemoglobin 27.9 PG (26-34); Mean Corpuscular Volume 83.3 fL (80-100); Monocytes Absolute Auto 300 /uL (0-900); Monocytes Percent Auto 7.8 % (3-14); Neutrophils Absolute Auto 2100 /uL (1500-7000); Neutrophils Percent Auto 50.6 % (50-75); Platelet Count 265 X10^3/uL (150-400); Red Blood Cell Count 4.16 X10^6/uL (4.0-5.2); Red Cell Distribution Width 15.9 % (11.6-14.8); White Blood Cell Count 4.1 X10^3/uL (4.5-11.0)
[2024-10-04 09:23] LABS: Erythrocyte Sedimentation Rate 7 MM/HR (0-20)
[2024-10-04 09:30] LABS: BUN Creatinine Ratio 15.3 (6-22); Blood Urea Nitrogen 15 mg/dL (7-17); Calcium 9.2 mg/dL (8.4-10.2); Carbon Dioxide 29 mmol/L (22-32); Chloride 101 mmol/L (98-107); Cholesterol 247 mg/dL (140-199); Estimated Glomerular Filt Rate > 60 mL/min (>60); Glucose 93 mg/dL (70-99); HDL Cholesterol 80 mg/dL (40-60); HEMOLYSIS < 15 (0-50); LDL Cholesterol Calculated 149 mg/dL (<100); Potassium 4.8 mmol/L (3.4-5.1); Sodium 137 mmol/L (137-145); Triglycerides 89 mg/dL (35-150)
[2024-10-04 09:57] LABS: TSH w/ Reflex to FT4 1.25 uIU/mL (0.47-4.68)
== END ==
PROVIDERS: PCP Family Medicine; Referring Provider Family Medicine; Visit Provider Family Medicine
DX: Z00.00 Encounter for general adult medical examination without abnormal findings (principal)
CPT/HCPCS: 36415; 80048; 80061; 84443; 85025; 85651